=== PATIENT | female | born 1930 | race Caucasian/White ===

== ENCOUNTER 2016-12-30 18:58 | Inpatient (IN) | payer MEDICARE, MEDICAID ==
[2016-12-30 19:41] LABS: % BASOPHILS 0.6 % (0.0-2.0); % LYMPHOCYTES 31.3 % (20.0-50.0); % NEUTROPHILS 56.1 % (40.0-80.0); HEMATOCRIT 31.8 % (41.0-60); HEMOGLOBIN 10.4 gm/dL (12-16); MEAN CELL VOLUME 92.9 fl (81-100); MEAN CORPUSCULAR HEMOGLOBIN 30.5 pg (27.0-31.0); MEAN CORPUSCULAR HGB CONC 32.8 pg (28.0-36.0); NEUTROPHILE ABSOLUTE 4.8 Th/cmm (1.8-8.0); PLATELET COUNT 270 Th/cmm (150-400); RED BLOOD COUNT 3.42 Mil/cmm (3.80-5.20); RED CELL DISTRIBUTION WIDTH 12.8 % (11.5-20.0)
[2016-12-30 20:06] LABS: WHITE BLOOD COUNT 8.6 Th/cmm (4.8-10.8)
[2016-12-30 20:10] LABS: ALB/GLOB RATIO 1.4 (1.0-1.8); ALKALINE PHOSPHATASE 55 U/L (34-104); ANION GAP 7.8 (7.0-16.0); BILIRUBIN,TOTAL 0.3 mg/dL (0.3-1.0); BUN - UREA NITROGEN 26 mg/dL (7-25); CALCIUM SERUM 10.7 mg/dL (8.6-10.3); CARBON DIOXIDE 21.7 mEq/L (21.0-31.0); CHLORIDE 108 mEq/L (98-107); GLUCOSE 124 mg/dL (70-105); POTASSIUM SERUM 3.5 mEq/L (3.5-5.1); SGOT 10 U/L (13-39); SGPT/ALT 7 U/L (7-52); SODIUM SERUM 134 mEq/L (136-145)
--- NOTE | 2016-12-30 20:13 | ED Physician Chart ---
ED Chief Complaint/HPI - Patient Information Date Seen:: 12/30/16 Time Seen:: 20:08 Chief Complaint:: Poor oral intake and generalized weakness History of Present Illness:: 86 yo female who was a resident at [facility], was brought to the ER for evaluation of loss of appetite, poor oral intake and generalized weakness. The patient stated: "I am sick." Allergies:: Allergies Allergy/AdvReac Type Severity Reaction Status Date / Time No Known Allergies Allergy Verified 12/30/16 19:11 Vitals:: Vital Signs - 8 hr 12/30/16 19:00 Temp 98.3 F HR 67 RR 18 BP 119/56 O2 Sat % 95 ED Review of Systems - Review of Systems General/Constitutional: No fever, No chills, Weakness, Loss of appetite Skin: No skin lesions Head: No headache Eyes: No loss of vision ENT: No earache Neck: No neck pain, No stiffness Cardio Vascular: No chest pain, No palpitations Pulmonary: No SOB GI: Other (poor oral intake) G/U: No dysuria Musculoskeletal: No bone or joint pain Psychiatric: No prior psych history Hematopoietic: No bruising Neurological: No syncope ED Past Medical History - Past Medical History Past Medical History: HTN, DM, CHF, CVA/TIA, Dyslipidemia, Dementia, Other ( hyperparathyroidism, hypercalcemia, dysphagia) Social History: Non Smoker, No Alcohol, No Drug Use Surgical History: None Psychiatricy History: Depression, Other (psychosis) Family Medical History - Family Member Mother History Unknown: Yes Ethnicity: Living Status: Still Living Hx Family Cancer: No Hx Family Coronary Artery Disease: Yes Hx Family Congestive Heart Failure: Yes Hx Family Hypertension: Yes Hx Family Stroke: Yes Hx Family Diabetes: Yes Hx Family Seizures: No Hx Family Dementia: No Hx Family AIDS: No Hx Family HIV: No Hx Family COPD: No Hx Family Hepatitis: No Hx Family Psychiatric Problems: No Hx Family Tuberculosis: No ED Physical Exam - Physical Examination General/Constitutional: Awake, Alert Other Gen/Cons comments:: oriented to self and hospital only Head: Atraumatic Eyes: PERRL, EOMI Skin: No skin lesions Neck: Full ROM w/o pain Respiratory: Clear to Auscultation, No Wheeze/Rhonchi/Rales Cardio Vascular: RRR, No murmur, gallop, rubs, NL S1 S2 GI: No tenderness/rebounding/guarding Extremities: Full ROM, No edema Other Neuro/Psych comments:: Oriented to self. Right sided weakness ED Labs/Radiology/EKG Results - Lab Results Results: Laboratory Tests 12/30/16 19:34 WBC 8.6 D RBC 3.42 L Hgb 10.4 L Hct 31.8 L MCV 92.9 MCH 30.5 MCHC Differential 32.8 RDW 12.8 Plt Count 270 MPV 7.0 Neutrophils % 56.1 Lymphocytes % 31.3 Monocytes % 8.0 Eosinophils % 4.0 Basophils % 0.6 - Radiology Results Results: CXR: unremarkable ED Assessment - Assessment General Assessment: 86 yo female has UTI, failure to thrive and dehydration. Critical Care Time: 30 min Excludes all billable procedures: Yes This condition life threatening/high prob of deterioration: No Assessment/Comments:: CBC, CMP, TSH, HbA1c, UA, urine drug screen CXR, EKG Admit to inpatient service med surg floor ED Septic Shock - . Is Septic Shock (SBP<90, OR Lactate>4 mmol\\L) present?: No - <6hrs of presentation: Vital Signs: Vital Signs - 8 hr 12/30/16 19:00 Temp 98.3 F HR 67 RR 18 BP 119/56 O2 Sat % 95 ED Reassessment (Disposition) - Reassessment Reassessment Condition:: Improved - Patient Disposition Discharge/Transfer:: Acute Care w/in this hosp Admitting Psych Physician:: Raúl Martinez ED Discharge Plan - Patient Disposition Admit/Discharge/Transfer: Acute Care w/in this hosp
[2016-12-30 21:17] LABS: URINE BILIRUBIN NEGATIVE (NEGATIVE); URINE BLOOD NEGATIVE (NEGATIVE); URINE GLUCOSE (UA) NEGATIVE (NEGATIVE); URINE KETONE NEGATIVE (NEGATIVE); URINE PH 5.5 (4.6 - 8.0); URINE PROTEIN NEGATIVE (NEGATIVE); URINE UROBILINOGEN 0.2 E.U./dL (0.2 - 1.0)
[2016-12-30 21:21] LABS: URINE COLOR STRAW
[2016-12-30 21:26] LABS: URINE BACTERIA MODERATE /hpf (NONE SEEN); URINE EPITHELIAL CELLS FEW /lpf (FEW); URINE RBC NONE SEEN /hpf (0-5)
[2016-12-30 21:30] LABS: AMPHETAMINE URINE NEGATIVE (NEGATIVE); BARBITURATES URINE NEGATIVE (NEGATIVE); METHADONE URINE NEGATIVE (NEGATIVE)
[2016-12-30] MEDS: D5-0.45NS w/20 mEq KCL 1,000 ML IV SCH (21:34)
[2016-12-30 21:47] VITALS: BP 131/58
--- NOTE | 2016-12-31 07:14 | Diagnostic Imaging Report ---
Portable chest x-ray Time: 1920 hours History: Pain Findings: Allowing for portable technique the heart size is normal. No focal pulmonary parenchymal processes. No hilar or mediastinal abnormalities. Impression: No acute abnormalities.
--- NOTE | 2016-12-31 10:23 | Consultation ---
DATE OF CONSULTATION: 12/31/2016 IDENTIFYING INFORMATION: The patient is an 86-year-old female. REASON FOR ADMISSION: Consult. HISTORY OF PRESENT ILLNESS: The patient was admitted because of anemia. Also, the patient has been depressed, not eating much. She is not sleeping. She has a long history of depression, waxes and wanes and defers, she is on the eating feeding program at [facility]. The patient was not a very good historian. She is also demented, confused. PAST PSYCHIATRIC HISTORY: Depression and dementia. MEDICAL HISTORY: Deferred to the medical doctor. ALLERGIES: She has not started any medications yet. She was on Effexor when she was at [facility]. FAMILY AND SOCIAL HISTORY: The patient has been at [facility]. She has children that are supportive. She is unable to give me much more information. MENTAL STATUS EXAMINATION: The patient is appropriately dressed, not very groomed. Mood is depressed. Affect is sad. Thoughts are concrete. Speech is coherent. Her long and short term are poor. She has been depressed, not eating, not sleeping. She denies any intent to harm herself or anyone. Her insight and judgment is impaired. 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 AXIS II: Dementia. MEDICAL DIAGNOSES: Deferred to the medical doctor PLAN: I would recommend to start the patient on Remeron, transferred to [facility] when medically cleared. Thank you very much for allowing me to participate in the care of this most interesting lady. JOB# [id number]
[2016-12-31] MEDS: D5-0.45NS w/20 mEq KCL 1,000 ML IV SCH ×2 (10:58→22:07)
[2016-12-31] MEDS ORDERED: Magnesium Hydroxide (MOM) 30 mL UDC PO PRN (13:54)
[2016-12-31] MEDS: INSULIN ASPART SLIDING SCALE 100 UNITS/ML UNIT SUBQ SCH ×2 (17:17→20:22)
[2016-12-31] MEDS: cefTRIAXone 1 GM in Sodium Chloride 0.9% 50 ML IV SCH (17:30)
--- NOTE | 2016-12-31 17:30 | History & Physical ---
ADMIT DATE: CHIEF COMPLAINT: Acute confusion, agitation, depression. HISTORY OF PRESENT ILLNESS: The patient is an 86-year-old female with long history of hypertension, diabetes mellitus, dementia, and hyperlipidemia; presented to the Emergency Room with altered level of consciousness, confusion. Initial workup significant for possible urinary tract infection and metabolic encephalopathy, admitted to the hospital, started on antibiotic, fluids. Psych evaluation ordered. Denies any chest pain, nausea, vomiting. PAST MEDICAL HISTORY: Significant for hypertension, diabetes mellitus, hyperlipidemia, and dementia. PAST SURGICAL HISTORY: No recent surgery. ALLERGIES: None. MEDICATIONS: Follow admission reconciliation. SOCIAL HISTORY: No smoking, alcohol, or drug use. FAMILY HISTORY: Noncontributory. REVIEW OF SYSTEMS: RENAL SYSTEM: No history of chronic renal disorder. CARDIOVASCULAR SYSTEM: No coronary artery disease. ENDOCRINE SYSTEM: She has diabetes mellitus. GASTROINTESTINAL SYSTEM: No upper or lower gastrointestinal bleed. NEUROLOGICAL: She has mild dementia. PHYSICAL EXAMINATION: GENERAL: She is awake, alert, mildly confused. VITAL SIGNS: Temperature 97.3, heart rate 61, and blood pressure 97/55. HEENT: Normocephalic. Pupils reacting equal to light and accommodation. Sclerae clear. NECK: Supple. Negative for lymphadenopathy, JVD, or bruit. CHEST: Air entry bilaterally normal. No rhonchi or wheezing. HEART: S1, S2 normal. No murmur, gallop, or rub. ABDOMEN: Soft, bowel sounds positive. EXTREMITIES: No edema. NEUROLOGIC: She is awake, alert, not fully oriented. No focal motor or sensory deficit. Cranial nerves II through XII is intact. LABORATORY DATA: White blood cell 8.6, hemoglobin 10.4, hematocrit 31.8, and platelets are 270. Sodium 134, potassium 3.5, BUN 26, and creatinine 1.0. Urinalysis positive nitrite. ASSESSMENT: 1. Urinary tract infection. 2. Metabolic encephalopathy. 3. Hypertension. 4. Diabetes mellitus. 5. Anemia. 6. Mild dementia. PLAN: The patient admitted to the hospital under Dr. Martinez's service. Started her on IV fluid, IV antibiotic. Psych evaluation ordered. Sliding scale with regular insulin coverage. The patient will resume her home medications. CBC, CMP for tomorrow. The patient is a full code. JOB# [id number]
[2017-01-01] MEDS: INSULIN ASPART SLIDING SCALE 100 UNITS/ML UNIT SUBQ SCH ×4 (06:39→20:53)
[2017-01-01] MEDS ORDERED: Non-Formulary Item 1 EA (Cranberry Fruit Concentrate [Cranberry] 450 MG) PO SCH (09:00)
[2017-01-01] MEDS ORDERED: Probiotic Screen MC PRN (10:00)
[2017-01-01] MEDS: Multivitamin Tab PO SCH (10:05)
[2017-01-01] MEDS: Lactulose 10 Gm/15 mL 30mL UDC PO SCH (10:06)
[2017-01-01] MEDS: D5-0.45NS w/20 mEq KCL 1,000 ML IV SCH ×2 (11:00→23:44)
[2017-01-01] MEDS: cefTRIAXone 1 GM in Sodium Chloride 0.9% 50 ML IV SCH (13:34)
--- NOTE | 2017-01-01 14:25 | Progress Notes ---
DATE: 01/01/2017 Case was discussed with staff. The patient's condition continues to be depressed, overwhelmed; however, the staff reports she was able to feed herself, which is a progress, as she was unable to get herself when she was in the hospital. Sleeping well. She is still depressed, overwhelmed, unable to care for herself fully. I did initiate her on medication with no side effects, no sedation, no nausea. She is also kept on the Namenda 10 mg twice a day and Aricept 10 mg at bedtime and she is on insulin, metformin and multivitamin. We will continue the patient with therapy, adjust medications and the patient could be transferred to psych unit ____. JOB# [id number]
--- NOTE | 2017-01-01 19:36 | Internal Medicine Prog Note ---
Internal Medicine Subjective - Subjective Service Date: 01/01/17 Patient seen and examined:: with staff Internal Medicine Objective - Results Result Diagrams: 12/30/16 19:34 12/30/16 19:34 Recent Labs: Laboratory Last Values WBC 8.6 Th/cmm (4.8-10.8) D 12/30/16 19:34 RBC 3.42 Mil/cmm (3.80-5.20) L 12/30/16 19:34 Hgb 10.4 gm/dL (12-16) L 12/30/16 19:34 Hct 31.8 % (41.0-60) L 12/30/16 19:34 MCV 92.9 fl (81-100) 12/30/16 19:34 MCH 30.5 pg (27.0-31.0) 12/30/16 19:34 MCHC Differential 32.8 pg (28.0-36.0) 12/30/16 19:34 RDW 12.8 % (11.5-20.0) 12/30/16 19:34 Plt Count 270 Th/cmm (150-400) 12/30/16 19:34 MPV 7.0 fl 12/30/16 19:34 Neutrophils % 56.1 % (40.0-80.0) 12/30/16 19:34 Lymphocytes % 31.3 % (20.0-50.0) 12/30/16 19:34 Monocytes % 8.0 % (2.0-10.0) 12/30/16 19:34 Eosinophils % 4.0 % (0.0-5.0) 12/30/16 19:34 Basophils % 0.6 % (0.0-2.0) 12/30/16 19:34 Sodium 134 mEq/L (136-145) L 12/30/16 19:34 Potassium 3.5 mEq/L (3.5-5.1) 12/30/16 19:34 Chloride 108 mEq/L (98-107) H 12/30/16 19:34 Carbon Dioxide 21.7 mEq/L (21.0-31.0) 12/30/16 19:34 Anion Gap 7.8 (7.0-16.0) 12/30/16 19:34 BUN 26 mg/dL (7-25) H 12/30/16 19:34 Creatinine 1.0 mg/dL (0.6-1.2) 12/30/16 19:34 Est GFR ( Amer) TNP 12/30/16 19:34 Est GFR (Non-Af Amer) TNP 12/30/16 19:34 BUN/Creatinine Ratio 26.0 12/30/16 19:34 Glucose 124 mg/dL (70-105) H 12/30/16 19:34 POC Glucose 124 MG/DL (70 - 105) H 01/01/17 16:49 Hemoglobin A1c % 5.5 % (4.0-6.0) 12/30/16 19:34 Calcium 10.7 mg/dL (8.6-10.3) H 12/30/16 19:34 Total Bilirubin 0.3 mg/dL (0.3-1.0) 12/30/16 19:34 AST 10 U/L (13-39) L 12/30/16 19:34 ALT 7 U/L (7-52) 12/30/16 19:34 Alkaline Phosphatase 55 U/L (34-104) 12/30/16 19:34 Total Protein 6.0 gm/dL (6.0-8.3) 12/30/16 19:34 Albumin 3.5 gm/dL (3.7-5.3) L 12/30/16 19:34 Globulin 2.5 gm/dL 12/30/16 19:34 Albumin/Globulin Ratio 1.4 (1.0-1.8) 12/30/16 19:34 TSH 2.59 uIU/ml (0.34-5.60) 12/30/16 19:34 Urine Source RANDOM 12/30/16 20:50 Urine Color STRAW 12/30/16 20:50 Urine Clarity CLOUDY (CLEAR) H 12/30/16 20:50 Urine pH 5.5 (4.6 - 8.0) 12/30/16 20:50 Ur Specific [place] 1.015 (1.005-1.030) 12/30/16 20:50 Urine Protein NEGATIVE mg/dL (NEGATIVE) 12/30/16 20:50 Urine Glucose (UA) NEGATIVE mg/dL (NEGATIVE) 12/30/16 20:50 Urine Ketones NEGATIVE mg/dL (NEGATIVE) 12/30/16 20:50 Urine Blood NEGATIVE (NEGATIVE) 12/30/16 20:50 Urine Nitrate POSITIVE (NEGATIVE) H 12/30/16 20:50 Urine Bilirubin NEGATIVE (NEGATIVE) 12/30/16 20:50 Urine Urobilinogen 0.2 E.U./dL (0.2 - 1.0) 12/30/16 20:50 Ur Leukocyte Esterase SMALL (NEGATIVE) H 12/30/16 20:50 Urine RBC NONE SEEN /hpf (0-5) 12/30/16 20:50 Urine WBC 2-5 /hpf (0-5) 12/30/16 20:50 Ur Epithelial Cells FEW /lpf (FEW) 12/30/16 20:50 Urine Bacteria MODERATE /hpf (NONE SEEN) 12/30/16 20:50 Urine Opiates Screen NEGATIVE (NEGATIVE) 12/30/16 20:50 Urine Methadone Screen NEGATIVE (NEGATIVE) 12/30/16 20:50 Ur Barbiturates Screen NEGATIVE (NEGATIVE) 12/30/16 20:50 Ur Tricyclics Screen NEGATIVE (NEGATIVE) 12/30/16 20:50 Ur Phencyclidine Scrn NEGATIVE (NEGATIVE) 12/30/16 20:50 Amphetamines Screen NEGATIVE (NEGATIVE) 12/30/16 20:50 U Methamphetamines Scrn NEGATIVE (NEGATIVE) 12/30/16 20:50 U Benzodiazepines Scrn NEGATIVE (NEGATIVE) 12/30/16 20:50 U Cocaine Metab Screen NEGATIVE (NEGATIVE) 12/30/16 20:50 U Cannabinoids Screen NEGATIVE (NEGATIVE) 12/30/16 20:50 - Physical Exam Vitals and I&O: Vital Signs Temp 98.7 F 01/01/17 16:38 Pulse 83 01/01/17 16:46 Resp 18 01/01/17 16:38 BP 120/64 01/01/17 16:46 Pulse Ox 83 01/01/17 16:38 Intake & Output 01/01/17 01/01/17 01/02/17 06:59 18:59 06:59 Intake Total 1076.25 Balance 1076.25 Weight (lbs) 58.06 kg 58.06 kg Intake: Intake, IV Amount 836.25 1551.25 D5-0.45NS w/20 mEq KCL 1, 836.25 1551.25 000 ml @ 75 mls/hr IV . [id number] [facility] Rx#:[id number] Oral 240 450 Other: # Voids 3 2 # Bowel Movements 1 1 Stool Characteristics Soft Soft Brown Brown Active Medications: Current Medications Acetaminophen (Tylenol) 650 mg PO Q4HR PRN PRN Reason: Pain or Fever >101 Stop: 03/01/17 13:53 Last Admin: 01/01/17 11:02 Dose: 650 mg Ascorbic Acid (Vitamin C) 500 mg PO DAILY [facility] Stop: 03/02/17 08:59 Last Admin: 01/01/17 10:05 Dose: 500 mg Docusate Sodium (Colace) 100 mg PO BID [facility]IANA Stop: 03/01/17 16:59 Last Admin: 01/01/17 16:46 Dose: 100 mg Donepezil HCl (Aricept) 10 mg PO HS [facility] Stop: 03/01/17 20:59 Last Admin: 12/31/16 20:24 Dose: 10 mg Furosemide (Lasix) 20 mg PO DAILY [facility] Stop: 03/02/17 08:59 Last Admin: 01/01/17 10:05 Dose: 20 mg Potassium Chloride/Dextrose/Sod Cl (D5-0.45ns W/20 Meq Kcl) 1,000 mls @ 75 mls/ hr IV .[id number] [facility] Stop: 02/28/17 20:35 Last Infusion: 01/01/17 18:48 Dose: 75 mls/hr Ceftriaxone Sodium 1 gm/ (Sodium Chloride) 50 mls @ 100 mls/hr IV Q24HR [facility] Stop: 03/01/17 13:59 Last Admin: 01/01/17 13:34 Dose: 100 mls/hr Insulin Aspart (Novolog Insulin Sliding Scale) 0 units SUBQ ACHS [facility] PRN Reason: Protocol Stop: 03/01/17 16:29 Last Admin: 01/01/17 16:50 Dose: Not Given Isosorbide Dinitrate (Isordil) 5 mg PO BID [facility] Stop: 03/01/17 16:59 Last Admin: 01/01/17 16:46 Dose: 5 mg Lactobacillus Rhamnosus (Culturelle) 1 each PO DAILY [facility] Stop: 03/03/17 08:59 Lactulose (Cephulac) 10 gm PO DAILY [facility] Stop: 03/02/17 08:59 Last Admin: 01/01/17 10:06 Dose: 10 gm Magnesium Hydroxide (Milk Of Magnesia) 30 ml PO DAILY PRN PRN Reason: Constipation Stop: 03/01/17 13:53 Memantine (Namenda) 10 mg PO BID [facility]IANA Stop: 03/01/17 16:59 Last Admin: 01/01/17 16:46 Dose: 10 mg Metformin HCl (Glucophage) 500 mg PO TIDWM [facility] Stop: 03/01/17 16:59 Last Admin: 01/01/17 16:46 Dose: 500 mg Mirtazapine (Remeron) 7.5 mg PO HS [facility] PRN Reason: Protocol Stop: 03/01/17 20:59 Miscellaneous (Probiotic Screen) 1 ea MC PRN PRN PRN Reason: PROTOCOL Stop: 03/02/17 09:59 Multivitamins/Vitamin C (Theragran) 1 tab PO DAILY [facility] Stop: 03/02/17 08:59 Last Admin: 01/01/17 10:05 Dose: 1 tab Simvastatin (Zocor) 20 mg PO HS [facility] PRN Reason: Protocol Stop: 03/01/17 20:59 Last Admin: 12/31/16 20:24 Dose: 20 mg General: demented HEENT: NC/AT, PERRLA, EOMI, anicteric sclerae, throat clear Neck: Supple, No JVD, No thyromegaly, +2 carotid pulse wo bruit, No LAD Lungs: CTAB Cardiovascular: Normal S1, Normal S2, without murmur Abdomen: non-tender Extremities: clear Neurological: no change - Procedures Procedures: Procedures Procedure Code Date EMERGENCY DEPT VISIT 05253 05/09/11 OTHER GROUP THERAPY 94.44 09/20/12 RECREATIONAL THERAPY 93.81 11/16/09 Internal Medicine Assmt/Plan - Assessment Assessment: 1.UTI. 2.DM. 3.HTN. 4.ANEMIA. 5.DEMENTIA. - Plan Plan: CONTINUE ON CURRENT MEDICATION AND DIET.
[2017-01-02] MEDS: INSULIN ASPART SLIDING SCALE 100 UNITS/ML UNIT SUBQ SCH ×3 (07:52→16:38)
[2017-01-02] MEDS: Lactulose 10 Gm/15 mL 30mL UDC PO SCH (08:08)
[2017-01-02] MEDS: Multivitamin Tab PO SCH (08:12)
[2017-01-02] MEDS ORDERED: Lactobacillus Rhamnosus 10 Billion CFU Capsule PO SCH (09:00)
--- NOTE | 2017-01-02 12:09 | Progress Notes ---
DATE: 01/02/2017 Case was discussed with staff and reviewed the records. Apparently, the family refused to allow the patient to come to the unit and they wanted to go back to [place]. The patient so far including was acting anyway dangerous, so we will put her on a hold. She is sleeping well. She is being able to feed herself. No side effects with the medication, no sedation, no nausea. The patient can go back to [place] and I can follow up with the patient there. Thank you very much for allowing me to participate in the care of this most interesting lady. JOB# [id number]
[2017-01-02] MEDS: D5-0.45NS w/20 mEq KCL 1,000 ML IV SCH (13:30)
[2017-01-02] MEDS: cefTRIAXone 1 GM in Sodium Chloride 0.9% 50 ML IV SCH (14:06)
--- NOTE | 2017-01-03 05:00 | Discharge Summary ---
DATE OF DISCHARGE: 01/02/2017 FINAL DIAGNOSES: 1. Urinary tract infection. 2. Metabolic encephalopathy. 3. Hypertension. 4. Diabetes mellitus. 5. Chronic anemia. 6. Mild dementia. HOSPITAL COURSE: The patient is an 86-year-old female with long history of hypertension, diabetes mellitus, hyperlipidemia, mild dementia, presented to the Emergency Room with acute confusion, agitation, depression. Initial workup significant for urinary tract infection and metabolic encephalopathy, admitted to the telemetry, started on antibiotic, fluid. PHYSICAL EXAMINATION: VITAL SIGNS: Temperature 97.3, heart rate 61, blood pressure 97/55. CHEST: Clear to auscultation. ABDOMEN: Soft. Bowel sounds positive. LABORATORY DATA: White blood cells 8.6, hemoglobin 10.4, hematocrit 31.8. The patient was started on 1800 kilocalorie diet, sliding scale with regular insulin coverage. COURSE OF HOSPITALIZATION: During hospitalization, the patient improved clinically and on 01/01/2017, the patient was feeling better. No chest pain, no shortness of breath, nausea, vomiting, fever or chills. PHYSICAL EXAMINATION: CHEST: Clear to auscultation. ABDOMEN: Soft, bowel sounds positive. EXTREMITIES: No edema. NEUROLOGICAL: She was awake, alert, mildly confused. LABORATORY DATA AND DIAGNOSTIC STUDIES: White blood cell 8.6, hemoglobin 10.4. Sodium 134, potassium 3.5, BUN 26, creatinine 0.1. DISPOSITION: On 01/02/2017, patient is clinically stable. The patient is being transferred back to [facility] to continue on her medication and diet. CONDITION ON DISCHARGE: Stable. MEDICATIONS: Follow discharge reconciliation. [facility]# [id number]
== END 2017-01-02 18:45 | disposition home or self-care (01) | DRG 689 ==
LOC: ER 18:58 → TELE 20:25 → MSI 01-02 18:35
PROVIDERS: ADMIT Family Medicine; ATTEND Family Medicine
DX: N39.0 Urinary tract infection, site not specified (principal); G93.41 Metabolic encephalopathy; D64.9 Anemia, unspecified; I50.9 Heart failure, unspecified; F33.9 Major depressive disorder, recurrent, unspecified; E87.1 Hypo-osmolality and hyponatremia; I11.0 Hypertensive heart disease with heart failure; R13.10 Dysphagia, unspecified; E11.9 Type 2 diabetes mellitus without complications; E78.5 Hyperlipidemia, unspecified; F03.90 Unspecified dementia, unspecified severity, without behavioral disturbance, psychotic disturbance, mood disturbance, and anxiety; E86.0 Dehydration; R62.7 Adult failure to thrive; Z82.49 Family history of ischemic heart disease and other diseases of the circulatory system; Z83.3 Family history of diabetes mellitus; Z86.73 Personal history of transient ischemic attack (TIA), and cerebral infarction without residual deficits; Z82.3 Family history of stroke
CPT/HCPCS: 36415-UA; 71010-TC; 80053-TC; 80307; 81001-TC; 82948-90; 83036-90; 84443-TC; 85025-TC; 90784; 93005; J0696; J1815; Z7502; Z7610